=== PATIENT | female | born 2000 | race Caucasian/White ===

== ENCOUNTER 2021-11-27 06:40 | Day surgery (SDC) | payer OTHER ==
[~2021-11-27] VITALS: Ht 172.7 cm; Wt 81.6 kg
[2021-11-27 07:29] LABS: HCG,QUAL RESULT NEGATIVE (NEGATIVE)
[2021-11-27] MEDS ORDERED: fentaNYL CITRATE 250 MCG/5 ML AMP ONE (09:17)
[2021-11-27] MEDS ORDERED: LIDOCAINE PF 1%, 20 MG/2 ML AMP ONE (09:17)
[2021-11-27] MEDS ORDERED: ONDANSETRON HCL 4 MG/2 ML VIAL ONE (09:17)
[2021-11-27] MEDS ORDERED: LR 1,000 ML IV.SOLN IV ONE (09:17)
[2021-11-27] MEDS ORDERED: ROCURONIUM BROMIDE 10 MG/ML (ZEMURON) ONE (09:17)
[2021-11-27] MEDS ORDERED: PROPOFOL 200MG/ 20ML VIAL (DIPRIVAN) IV ONE (09:17)
[2021-11-27] MEDS ORDERED: NS IRRIG SOLN 1000 ML IR ONE (09:17)
[2021-11-27] MEDS ORDERED: MIDAZOLAM HCL 5 MG/5 ML VIAL ONE (09:17)
[2021-11-27] MEDS ORDERED: SUGAMMADEX SODIUM 200 MG/2 ML VIAL IV ONE (09:17)
[2021-11-27] MEDS ORDERED: MUPIROCIN 2% TOPICAL OINTMENT 22 GM ONE (09:17)
[2021-11-27] MEDS ORDERED: OXYMETAZOLINE HCL 0.05% NASAL SPRAY NS ONE (09:17)
[2021-11-27] MEDS ORDERED: LIDOCAINE/EPI MPF 1%1:200000 30 ML VIAL ONE (09:17)
[2021-11-27] MEDS ORDERED: DESFLURANE 15 MIN GAS INH ONE (09:17)
[2021-11-27] MEDS ORDERED: DEXAMETHASONE SOD PHOSPHATE 4 MG/ML VIAL ONE (09:17)
[2021-11-27] MEDS ORDERED: ACETAMINOPHEN I.V. 1000 MG 100 ML IV ONE (09:39)
[2021-11-27] MEDS ORDERED: HYDROmorphone 1 MG/ML INJ. CARTRIDGE IVP PRN ×2 (10:15)
[2021-11-27] MEDS ORDERED: MIDAZOLAM HCL 2 MG/2 ML VIAL (VERSED) IVP PRN (10:15)
[2021-11-27] MEDS ORDERED: METOCLOPRAMIDE HCL 10 MG/2 ML VIAL IVP PRN (10:15)
[2021-11-27] MEDS ORDERED: MEPERIDINE HCL/PF 25 MG/ML DISP.SYRIN IVP PRN (10:15)
[2021-11-27] MEDS ORDERED: hydrALAZINE HCL 20 MG/ML VIAL IVP PRN (10:15)
[2021-11-27] MEDS ORDERED: LR 1,000 ML IV SCH (10:15)
[2021-11-27] MEDS ORDERED: LABETALOL 100 MG/ 20ML VIAL IVP PRN (10:15)
[2021-11-27] MEDS ORDERED: HYDROmorphone 1 MG/ML INJ. CARTRIDGE ONE (13:26)
[2021-11-27 13:45] VITALS: BP_SYST 122
== END 2021-11-28 14:55 | disposition home or self-care (01) ==
LOC: SDS 06:40 → SMU 06:41 → EDSTATUS 08:45 → SDS 11-28 14:55
PROVIDERS: ATTEND Otolaryngology
DX: J34.89 Other specified disorders of nose and nasal sinuses (principal); J34.2 Deviated nasal septum; J35.2 Hypertrophy of adenoids; J45.909 Unspecified asthma, uncomplicated; G47.33 Obstructive sleep apnea (adult) (pediatric); Z79.899 Other long term (current) drug therapy; Z20.822 Contact with and (suspected) exposure to COVID-19
CPT/HCPCS: 36415 ×2; 31255; 30140; 30520; 31256; 42831; 84703; 88304; 88305; 88311; 87426; U0003; J3490; J1100; J2001; J2250; J2405; J2704; J3010; J1170; J7120; J0131